=== PATIENT | female | born 1985 | race Caucasian/White ===

== ENCOUNTER 2023-06-27 10:11 | Emergency (ER) | payer OTHER ==
[~2023-06-27] VITALS: Ht 165.1 cm; Wt 81.6 kg
[2023-06-27] MEDS ORDERED: AMITRIPTYLINE50 MG PO (11:28)
[2023-06-27] MEDS ORDERED: ATIVAN0.5 MG PO (11:29)
[2023-06-27 12:18] LABS: BASO # 0.1 10*3/uL (0.0-0.1); BASO % 0.6 % (0.0-1.0); EOS # 0.3 10*3/uL (0.0-0.4); EOS % 3.1 % (1.0-4.0); HEMATOCRIT 40.2 % (37.0-47.0); LYMPH % 24.9 % (27.0-41.0); MEAN CELL VOLUME 93.5 fl (81.0-99.0); MEAN CORPUSCULAR HGB 32.3 pg (27.0-31.0); MEAN CORPUSCULAR HGB CONC 34.6 g/dl (33.0-37.0); MEAN PLATELET VOLUME 8.7 fl (9.6-12.3); MONO # 0.5 10*3/uL (0.1-1.0); MONO % 5.9 % (3.0-9.0); NEUT # 5.3 10*3/uL (2.3-7.9); PLATELET COUNT AUTOMATED 298 10*3/uL (130-400); RED CELL DISTRI WIDTH 11.9 % (0-14.5); WHITE BLOOD COUNT 8.1 10*3/uL (4.8-10.8)
[2023-06-27 12:37] LABS: ALKALINE PHOSPHATASE 72 U/L (46-116); BUN 7 mg/dl (9-23); CHLORIDE 108 mmol/L (98-107); POTASSIUM 3.9 mmol/L (3.4-5.1); SGPT/ALT 9 U/L (5-49); TOTAL PROTEIN 7.1 gm/dL (6.0-8.0)
[2023-06-27] MEDS ORDERED: ISENTRESS400 MG PO (12:42)
[2023-06-27] MEDS ORDERED: TRUVADA 200 MG-1 TAB PO (12:42)
[2023-06-28 11:04] LABS: HEPATITIS B SURFACE AG Negative (Negative)
== END 2023-06-27 12:54 | disposition home or self-care (01) ==
LOC: ED 10:11
PROVIDERS: Nurse Practitioner Family
DX: Z77.21 Contact with and (suspected) exposure to potentially hazardous body fluids (principal); Z88.8 Allergy status to other drugs, medicaments and biological substances; Z98.890 Other specified postprocedural states

== ENCOUNTER 2023-09-19 13:01 | Emergency (ER) | payer OTHER ==
[~2023-09-19] VITALS: Ht 165.1 cm; Wt 80.7 kg
[~2023-09-19 13:01] MED LIST: AMITRIPTYLINE50 MG PO; ATIVAN0.5 MG PO; ISENTRESS400 MG PO; TRUVADA 200 MG-1 TAB PO
== END 2023-09-19 15:20 | disposition home or self-care (01) ==
LOC: ED 13:01
DX: S50.11XA Contusion of right forearm, initial encounter (principal); S60.221A Contusion of right hand, initial encounter; Z88.8 Allergy status to other drugs, medicaments and biological substances; Z98.890 Other specified postprocedural states; W22.01XA Walked into wall, initial encounter; Y93.89 Activity, other specified; Y92.149 Unspecified place in prison as the place of occurrence of the external cause; Y99.0 Civilian activity done for income or pay